=== PATIENT | male | born 1995 | race Caucasian/White ===

== ENCOUNTER 2017-09-21 07:36 | Emergency (ER) | payer BC ==
[~2017-09-21] VITALS: Ht 180.3 cm; Wt 63.5 kg
[2017-09-21] MEDS ORDERED: DICYCLOMINE HCL20 MG PO (10:32)
[2017-09-21] MEDS ORDERED: ONDANSETRON ODT8 MG PO (10:32)
== END 2017-09-21 10:40 | disposition home or self-care (01) ==
LOC: ED 07:36
DX: R10.10 Upper abdominal pain, unspecified (principal); R10.816 Epigastric abdominal tenderness; R11.10 Vomiting, unspecified; Z88.1 Allergy status to other antibiotic agents; Z79.899 Other long term (current) drug therapy
CPT/HCPCS: 80053; 83690; 85025; 96361; 96372; 96374; 96375; 99283; J0500; J2405; J3486; J7030